=== PATIENT | male | born 1995 | race Caucasian/White ===

== ENCOUNTER 2023-09-11 02:54 | Emergency (ER) | payer OTHER ==
[2023-09-11 03:00] VITALS: BP 142/92; PULSE 87; RESP 18; TEMP 98.2; BMI 27.1
== END 2023-09-11 03:20 | disposition home or self-care (01) ==
LOC: FER 02:54
DX: S80.212A Abrasion, left knee, initial encounter (principal); X58.XXXA Exposure to other specified factors, initial encounter
CPT/HCPCS: 99281-25